=== PATIENT | female | born 1965 | race Caucasian/White ===

== ENCOUNTER 2025-02-09 05:58 | Observation (INO) | payer BC ==
[~2025-02-09] VITALS: Ht 172.7 cm; Wt 110.5 kg
[2025-02-09] VITALS (19 sets, daily range): BP systolic 112–153; BP diastolic 48–98; PULSE 53–78; RESP 14–20; TEMP 97.4–98.6; O2SAT 93–98
[2025-02-09] MEDS: HYDROcodone/acetaminophen 10/325mg tab PO ONE (06:52)
[2025-02-09] MEDS ORDERED: ondansetron/PF 4mg/2ml inj IV PRN ×4 (07:20→14:05)
[2025-02-09] MEDS ORDERED: acetaminophen 325mg tablet PO PRN ×5 (07:20→14:05)
[2025-02-09] MEDS ORDERED: HYDROcodone/acetaminophen 5mg/325mg tablet PO PRN (07:20)
[2025-02-09] MEDS ORDERED: potassium Cl 20 mEq SR tablet PO PRN ×2 (07:20)
[2025-02-09] MEDS ORDERED: bisacodyl 10mg suppository rectal RC PRN (07:20)
[2025-02-09] MEDS ORDERED: potassium Cl 40MEQ/1/2NS 520ml 520 ML IV PRN (07:20)
[2025-02-09] MEDS ORDERED: diphenhydrAMINE 25mg capsule PO PRN ×3 (07:20→14:05)
[2025-02-09] MEDS ORDERED: magnesium hydroxide 30ml (MOM) UD suspension PO PRN ×2 (07:20→14:05)
[2025-02-09] MEDS ORDERED: normal saline 1000ml 1,000 ML IV SCH (07:20)
[2025-02-09] MEDS ORDERED: HYDROcodone/acetaminophen 10/325mg tab PO PRN ×2 (07:20)
[2025-02-09] MEDS ORDERED: magnesium Cl slow-release 64mg tablet PO PRN (07:20)
[2025-02-09] MEDS ORDERED: morphine 2 MG/ML inj. syringe IV PRN ×5 (07:20→12:05)
[2025-02-09] MEDS ORDERED: HYDROmorphone inj. 0.5 MG/0.5 ML DISP.SYRIN IV PRN ×2 (07:20→14:05)
[2025-02-09] MEDS ORDERED: ondansetron 4mg rapidly disintigrating tab PO PRN (07:20)
[2025-02-09] MEDS ORDERED: magnesium sulf-water 2g/50mL 50 ML IV PRN (07:20)
[2025-02-09] MEDS ORDERED: diphenhydrAMINE 50 mg/ml inj IV PRN (07:20)
[2025-02-09] MEDS ORDERED: magnesium sulf-water 4G/100mL 100 ML IV PRN (07:20)
[2025-02-09] MEDS ORDERED: mag hydrox/Alum hydrox/simeth 30ml oral suspension PO PRN (07:20)
[2025-02-09] MEDS ORDERED: TRAZ-251 PO (07:44)
[2025-02-09] MEDS ORDERED: LEVO137T2 PO (07:44)
[2025-02-09] MEDS ORDERED: HYDR25TA5 PO (07:44)
[2025-02-09] MEDS ORDERED: NEBI10TA13 (07:44)
[2025-02-09] MEDS ORDERED: LOSA100T58 PO (07:44)
[2025-02-09] MEDS ORDERED: docusate sod 100mg capsule PO SCH (08:00)
[2025-02-09 08:10] LABS: BASOPHILS % (AUTO) 0.3 % (0-1); EOSINOPHILS # (AUTO) 0.1 X10'3 (0-0.9); EOSINOPHILS % (AUTO) 0.5 % (0-6); HEMATOCRIT 34.6 % (35.0-45.0); HEMOGLOBIN 11.8 g/dl (12.0-16.0); LYMPHOCYTES # (AUTO) 1.2 X10'3 (1.1-4.8); LYMPHOCYTES % (AUTO) 9.6 % (21-51); MEAN CORPUSCULAR HEMOGLOBIN 28.9 PG (27.0-31.0); MEAN CORPUSCULAR VOLUME 85.2 FL (78-98); MEAN PLATELET VOLUME 7.7 FL (7.4-10.4); MONOCYTES # (AUTO) 0.8 X10'3 (0-0.9); MONOCYTES % (AUTO) 6.6 % (2-12); NEUTROPHILS # (AUTO) 10.5 X10'3 (1.8-7.7); PLATELET COUNT 292 X10'3 (140-440); RED BLOOD COUNT 4.07 X10'6 (4.20-5.60); RED CELL DISTRIBUTION WIDTH 14.1 % (11.5-14.5); WHITE BLOOD COUNT 12.6 X10'3 (4.5-11.0)
[2025-02-09 08:21] LABS: APTT 24 SECONDS (22-32); PROTHROMBIN TIME 10.3 SECONDS (9.0-12.0)
[2025-02-09 08:32] LABS: ALBUMIN 3.6 G/DL (3.4-5.0); ANION GAP 8 (8-16); BLOOD UREA NITROGEN 32 MG/DL (7-18); BUN/CREATININE RATIO 27.1 (10.0-20.0); CALCIUM 9.1 MG/DL (8.5-10.1); CHLORIDE 100 MMOL/L (99-107); CREATININE 1.18 MG/DL (0.40-0.90); GLUCOSE 140 MG/DL (70-104); POTASSIUM 3.9 MMOL/L (3.5-5.1); PRO BRAIN NATRIURETIC PEPTIDE 231 PG/ML (0-125); SODIUM 135 MMOL/L (135-145); THYROID STIMULATING HORMONE 1.06 ulU/ml (0.34-4.50); TOTAL CARBON DIOXIDE 26.8 MMOL/L (24-32); eCRCL 51 ML/MIN; eGFR 47 ML/MIN
[2025-02-09] MEDS: normal saline 1000ml 1,000 ML IV SCH (08:35)
[2025-02-09] MEDS: heparin, porcine 5000 units/ml vial SQ SCH (08:52)
[2025-02-09] MEDS ORDERED: bacitracin 15gm ointment TP ONE ×2 (09:35→11:09)
[2025-02-09] MEDS: ringers solution, lacted 1,000 ML IV ONE (10:35)
[2025-02-09] MEDS: protamine sulf. 10mg/ml inj. IV ONE (10:38)
[2025-02-09] MEDS ORDERED: vancomycin 1,000mg inj ONE (11:09)
[2025-02-09] MEDS ORDERED: sevoflurane 250ml liquid IH ONE (11:26)
[2025-02-09] MEDS ORDERED: midazolam 1 mg/ML 2ml injection ONE (11:34)
[2025-02-09] MEDS ORDERED: fentaNYL /PF 50mcg/ml 5ml ampule ONE (12:01)
[2025-02-09] MEDS ORDERED: propofol inj 20 ML IV ONE (12:03)
[2025-02-09] MEDS ORDERED: LIDOcaine 2% (20mg/ml) 5ml vial ONE (12:03)
[2025-02-09] MEDS ORDERED: ROPIVAcaine 0.5% (5mg/ml) 30ml vial ONE (12:03)
[2025-02-09] MEDS ORDERED: rocuronium 10mg/ml inj IV ONE (12:03)
[2025-02-09] MEDS ORDERED: LIDOcaine 1%/PF 5ML 10 MG/ML VIAL ONE (12:03)
[2025-02-09] MEDS ORDERED: ondansetron/PF 4mg/2ml inj ONE (12:03)
[2025-02-09] MEDS ORDERED: dexamethasone sod phosphate 4mg/ml inj. ONE (12:03)
[2025-02-09] MEDS ORDERED: HYDROmorphone/PF 0.2 MG/ML SYRINGE IV PRN ×2 (12:05)
[2025-02-09] MEDS ORDERED: proCHLORperazine 10 MG/2 ml inj IV PRN (12:05)
[2025-02-09] MEDS: ringers solution, lacted 1,000 ML IV SCH (12:05)
[2025-02-09] MEDS ORDERED: hydrALAZINE 20mg/ml inj. IV PRN (12:05)
[2025-02-09] MEDS ORDERED: morphine 4 MG/ML inj SYRINge IV PRN (12:05)
[2025-02-09] MEDS ORDERED: meperidine/PF 25mg/ml syringe IV PRN (12:05)
[2025-02-09] MEDS ORDERED: labetalol 20mg/4ml (5mg/ml) syringe IV PRN (12:05)
[2025-02-09] MEDS ORDERED: acetaminophen 1,000mg/100ml IV 100 ML IV PRN (12:05)
[2025-02-09] MEDS: bacitracin 15gm ointment TP ONE (12:13)
[2025-02-09] MEDS ORDERED: ceFAZolin 1000mg inj ONE ×2 (12:16)
[2025-02-09] MEDS ORDERED: neostigmine methylsulfate 1 MG/ML 10ml vial ONE (13:36)
[2025-02-09] MEDS ORDERED: glycopyrrolate 0.2mg/ml inj ONE (13:36)
[2025-02-09] MEDS: potassium Cl 20mEq in NS 1,000 ML IV SCH (14:05)
[2025-02-09] MEDS ORDERED: naloxone 0.4 mg/ml inj IV PRN (14:05)
[2025-02-09] MEDS ORDERED: traZODone 50mg tablet PO PRN (16:05)
[2025-02-09] MEDS ORDERED: temazepam 15mg capsule PO PRN (21:00)
[2025-02-10] MEDS: HYDROcodone/acetaminophen 5mg/325mg tablet PO PRN (01:46)
[2025-02-10 02:00] VITALS: BP 106/55; PULSE 63; RESP 19; TEMP 97.8; O2SAT 63
[2025-02-10 06:00] VITALS: BP 113/46; PULSE 66; RESP 17; TEMP 98.4; O2SAT 63
[2025-02-10 06:08] LABS: BASOPHILS % (AUTO) 0.2 % (0-1); EOSINOPHILS % (AUTO) 0 % (0-6); HEMATOCRIT 30.3 % (35.0-45.0); HEMOGLOBIN 10.2 g/dl (12.0-16.0); LYMPHOCYTES # (AUTO) 1.1 X10'3 (1.1-4.8); LYMPHOCYTES % (AUTO) 8.2 % (21-51); MEAN CORPUSCULAR HGB CONC 33.7 g/dL (33.0-36.5); MEAN PLATELET VOLUME 8.2 FL (7.4-10.4); MONOCYTES # (AUTO) 1.2 X10'3 (0-0.9); MONOCYTES % (AUTO) 8.8 % (2-12); NEUTROPHILS # (AUTO) 10.9 X10'3 (1.8-7.7); NEUTROPHILS % (AUTO) 82.8 % (42-75); PLATELET COUNT 263 X10'3 (140-440); RED BLOOD COUNT 3.52 X10'6 (4.20-5.60); RED CELL DISTRIBUTION WIDTH 13.8 % (11.5-14.5); WHITE BLOOD COUNT 13.1 X10'3 (4.5-11.0)
[2025-02-10 06:46] LABS: ALANINE AMINOTRANSFERASE 42 U/L (12-78); ALBUMIN 3.2 G/DL (3.4-5.0); ALKALINE PHOSPHATASE 59 IU/L (46-116); ANION GAP 8 (8-16); ASPARTATE AMINO TRANSFERASE 50 U/L (10-37); BILIRUBIN,TOTAL 0.3 MG/DL (0.1-1.0); BLOOD UREA NITROGEN 22 MG/DL (7-18); BUN/CREATININE RATIO 27.5 (10.0-20.0); CALCIUM 8.4 MG/DL (8.5-10.1); CHLORIDE 104 MMOL/L (99-107); CHOL/HDL RATIO 2.9 (0.00-4.99); CHOLESTEROL 150 MG/DL (0-200); GLUCOSE 134 MG/DL (70-104); HDL CHOLESTEROL 51 MG/DL (35-60); LDL CHOLESTEROL 70 MG/DL (50-100); POTASSIUM 3.6 MMOL/L (3.5-5.1); SODIUM 140 MMOL/L (135-145); TOTAL CARBON DIOXIDE 27.9 MMOL/L (24-32); TOTAL PROTEIN 6.5 G/DL (6.4-8.2); TRIGLYCERIDES 118 MG/DL (20-135); eCRCL 75 ML/MIN; eGFR 73 ML/MIN
[2025-02-10] MEDS: HYDROmorphone 1 mg/ml syringe IV PRN (08:18)
[2025-02-10] MEDS: HYDROchlorothiazide 25mg tablet PO SCH (08:19)
[2025-02-10] MEDS: losartan 50mg tablet PO SCH (08:19)
[2025-02-10] MEDS: levoTHYROXINE 112mcg tablet PO SCH (08:20)
[2025-02-10] MEDS: levoTHYROXINE 25mcg tablet PO SCH (08:20)
[2025-02-10] MEDS: oxyCODONE IR 5mg (immed. release) tablet PO PRN ×2 (09:57→14:07)
[2025-02-10 10:00] VITALS: BP 127/60; PULSE 68; RESP 18; TEMP 97.3; O2SAT 63
[2025-02-10] MEDS ORDERED: HYDR25TA5 PO (14:40)
[2025-02-10] MEDS ORDERED: ACET-1008 PO (14:42)
[2025-02-10] MEDS ORDERED: HYDR-3965 PO (14:44)
[2025-02-10 15:07] VITALS: RESP 16
[2025-02-10] MEDS ORDERED: celeCOXIB 100mg capsule PO SCH (20:00)
== END 2025-02-10 15:05 | disposition home or self-care (01) ==
LOC: ER 06:00 → INTOOBSV 07:25 → ED HOLD 07:25 → ORTHO 4S 15:10
PROVIDERS: ADMIT Family Medicine; ATTEND Family Medicine
DX: S42.222 2-part displaced fracture of surgical neck of left humerus (principal); G89.18 Other acute postprocedural pain; E03.9 Hypothyroidism, unspecified; I10 Essential (primary) hypertension; W01.0XXA Fall on same level from slipping, tripping and stumbling without subsequent striking against object, initial encounter; Z79.899 Other long term (current) drug therapy; Y93.89 Activity, other specified; Y92.89 Other specified places as the place of occurrence of the external cause; Y99.8 Other external cause status
CPT/HCPCS: 23615; 36415; 64415; 71045; 73060; 80048; 80053; 80061; 83036; 83735; 83880; 84100; 84145; 84443; 85025; 85610; 85651; 85730; 93005; 96372; 96374; 96375; 99285; C1713; G0378; J0690; J0735; J1100; J1171; J1644; J2003; J2250; J2405; J2704; J2710; J2720; J2795; J3010; J3370; J3480; J3490; J7030; 76000; A4615; A4618; A6253; A6449; A7000